=== PATIENT | female | born 1945 | race Two or more races ===

== ENCOUNTER 2017-10-16 15:58 | Outpatient (CLI) | payer OTHER ==
[~2017-10-16 15:58] MED LIST: ATIVAN2 M1 PO; DEPRIZINE15 MG/1 ML PO; GABAPENTIN600 MG PO; LOSARTAN-HCTZ1 EAC1 PO; PROTONIX40 MG PO; SIMVASTATIN10 MG PO; TRAM1TAB98 PO; TRAZAMINE PO; VOLTAREN100 GM TP; ZOCOR5 MG PO; [UNRECOGNIZED DRUG - OTHER] PO
== END 2017-10-16 16:09 | disposition home or self-care (01) ==
LOC: RAD 501 15:58
DX: M15.8 Other polyosteoarthritis (principal)

== ENCOUNTER 2017-11-28 10:44 | Outpatient (CLI) | payer OTHER | END 2017-11-28 10:47 | disposition home or self-care (01) | LOC: RAD 501 10:44 | DX: M25.552 Pain in left hip (principal) ==

== ENCOUNTER 2017-12-12 10:23 | Emergency (ER) | payer OTHER ==
[~2017-12-12] VITALS: Ht 167.6 cm; Wt 67.6 kg
[2017-12-13] MEDS ORDERED: ZOFRAN4 MG PO (01:31)
[2017-12-13] MEDS ORDERED: PEPCID40 MG PO (01:31)
== END 2017-12-13 01:41 ==
LOC: ER 10:23
DX: K29.70 Gastritis, unspecified, without bleeding (principal); E87.1 Hypo-osmolality and hyponatremia
CPT/HCPCS: 99284; 36415; 76700; 96365; 96366; 96374; J2405; J3490; J7050

== ENCOUNTER → 2018-01-10 | Outpatient (CLI) | payer OTHER ==
[~2018-01-10] MED LIST changes: +PEPCID40 MG PO; +ZOFRAN4 MG PO
== END | disposition home or self-care (01) ==
LOC: NUCLEAR 14:00
DX: M81.0 Age-related osteoporosis without current pathological fracture (principal)

== ENCOUNTER 2021-09-20 13:58 | Outpatient (CLI) | payer OTHER ==
[~2021-09-20 13:58] MED LIST changes: +BACLOFEN10 MG PO; +CALCI PO; +CANNABIS PO; +CLEOCIN HCL300 MG PO; +COZAAR100 MG PO; +DITROPAN XL10 MG PO; +FOSAMAX70 MG PO; +GABAPENTIN400 MG PO; +GABAPENTIN800 MG PO; +PERCOCET 5-3251 EACH PO; +PROTONIX40 M1 PO; +TRAZODONE HCL50 MG PO; +TRICOR48 MG PO; +ZANTAC150 M3 PO; +ZOCOR20 MG PO; +[UNRECOGNIZED DRUG - REMARK] PO
== END 2021-09-20 14:01 | disposition home or self-care (01) ==
LOC: SONOGRAMA 13:58
DX: N64.59 Other signs and symptoms in breast (principal); N64.4 Mastodynia

== ENCOUNTER 2022-11-26 14:05 | Outpatient (CLI) | payer OTHER | END 2022-11-26 14:10 | disposition home or self-care (01) | LOC: NUCLEAR 14:05 | DX: M16.0 Bilateral primary osteoarthritis of hip (principal); M19.90 Unspecified osteoarthritis, unspecified site ==